=== PATIENT | male | born 1950 | race Two or more races ===

== ENCOUNTER 2023-10-07 23:21 | Inpatient (IN) | payer OTHER ==
[~2023-10-07] VITALS: Ht 167.6 cm; Wt 79.4 kg
[2023-10-07] MEDS ORDERED: 0.9 % SODIUM CHLORIDE 1,000 ML IV SCH (23:45)
--- NOTE | 2023-10-07 23:48 | NUR ---
SE RECIBE PTE EN AMBULANCIA EN COMPANIA DE CUIDADORA QUIEN REFIERE PTE LYONS ESTADO CON CATARRO Y SECRECIONES DESDE HACE UNOS LOVE APROX. PTE PADECE DE AUTISMO LAUREN Y NO VERBALIZA. SE MIDEN SV Y SATURACION DE PTE RESULTA SER 90%, SE COLOCA EN RY CON [place] NON-REBREATHING DE AMBULANCIA Y SE CONECTA A MONITOR CARDIACO.
[2023-10-08 00:05] LABS: HEMATOCRIT 31.9 % (39.0-48.0); HEMOGLOBIN 10.5 g/dL (13-16.00); MEAN CELL VOLUME 86.6 fL (80.0-100.00); MEAN CORPUSCULAR HEMOGLOBIN 28.3 pg (27.00-32.0); MEAN CORPUSCULAR HGB CONC 32.7 g/dl (32.0-36.0); PLATELET COUNT 299 K/uL (150-450); RED BLOOD COUNT 3.69 M/uL (4.00-6.00); RED CELL DISTRIBUTION WIDTH 14.3 % (11.5-14.5)
[2023-10-08 00:07] LABS: ABG PH 7.435 (7.35-7.45); ABG PO2 87.9 mmHg (80-100); ABG pCO2 31.1 mmHg (35-45); BASE EXCESS -2.6 mmol/l; BICARBONATE 20.4 mmol/l (23-25); Tco2 21.4 mmol/l; allen test SATISFACTORY; o2 100 %; puncture site RADIAL LEFT
--- NOTE | 2023-10-08 00:08 | NUR ---
SE ORIENTA CUIDADORA DE PTE SOBRE TX, REFIERE ENTENDER Y ACEPTAR. RN ORELLANA CANALIZA PTE EN BRAZO DERECHO CON ANGIO #18 Y LE COLOCA IV FLUIDS SHERRELL ORDEN MEDICA. LE CARLITO MUESTRAS DE LABORATORIO BAJO MEDIDAS ASEPTICAS. MR SHELLEY DE TERAPIA RESPIRATORIA LE CARLITO MUESTRA DE ABG'S. PENDIENE RESULTADOS DE LABORATORIO.
[2023-10-08] MEDS ORDERED: CLONAZEPAM1 M1 PO (00:17)
[2023-10-08] MEDS ORDERED: MONODOX50 MG PO (00:17)
[2023-10-08] MEDS ORDERED: KEPPRA500 MG PO (00:18)
[2023-10-08] MEDS ORDERED: DOXEPIN HCL150 MG PO (00:18)
[2023-10-08] MEDS ORDERED: ATORVASTATIN CA10 MG PO (00:19)
[2023-10-08] MEDS ORDERED: SEROQUEL XR50 MG PO (00:19)
[2023-10-08] MEDS ORDERED: PROSCAR5 MG PO (00:20)
[2023-10-08] MEDS ORDERED: LEVOTHYROXINE25 MCG PO (00:20)
[2023-10-08] MEDS ORDERED: TAMS0.4C PO (00:20)
[2023-10-08] MEDS ORDERED: SERTRALINE20 MG/1 ML PO (00:21)
[2023-10-08] MEDS ORDERED: RESTORIL30 M1 PO (00:21)
[2023-10-08 00:26] LABS: CALCIUM 8.6 mg/dL (8.5-10.1); CREATININE SERUM 0.72 mg/dL (0.70-1.30); GFR 107.31; POTASSIUM 3.55 mEq/L (3.5-5.1)
[2023-10-08] MEDS ORDERED: LEVALBUTEROL HCL 0.63 MG/3 ML SOLUTION IH SCH ×2 (00:30→01:31)
--- NOTE | 2023-10-08 01:45 | NUR ---
SE NOTIFICAN CAMBIOS EN TX A PERSONAL DE TERAPIA RESPIRATORIA.
[2023-10-08] MEDS ORDERED: CEFTRIAXONE SODIUM 1,000 MG VIAL IV STA (03:05)
--- NOTE | 2023-10-08 03:28 | NUR ---
SE INSERTA [place] BAJO MEDIDAS ASEPTICAS Y SE ADMINISTRAN MEDICAMENTOS.
[2023-10-08 03:46] LABS: PH,URINE 6.5 (5.0-8.0); URINE APPEARANCE Clear; URINE BILIRRUBIN Negative (NEGATIVE); URINE BLOOD Negative; URINE COLOR Yellow; URINE GLUCOSE Negative (NEGATIVE); URINE LEUKOCYTE Negative; URINE NITRATE Negative; URINE PROTEIN Trace (NEGATIVE)
[2023-10-08 03:49] LABS: URINE EPITHELIAL CELLS 3.8 uL (0.0-38.8); URINE RBC 34.9 uL (0.0-20.8); URINE WBC 5.8 uL (0.0-23.2)
--- NOTE | 2023-10-08 07:39 | NUR ---
SE RECIBE PTE ALERTA Y ORIENTADA X3 LA MISMA SE OBSERVA CON CANALIZACION #20 Y #18 POR DONDE BAJA .9 NSS 80ML/HR. VENTURY MASK A 50%,. TERAPIA Q4H. [place] EN POSICION DRENANDO LIDUIDO AMARILLO. PTE EN ESPERA DE CONSULTA POR DR WEBSTER POR PULMONIA.
[2023-10-08] MEDS ORDERED: GUAIFENESIN 200 MG/10 ML BLIST.PACK PO SCH (08:44)
[2023-10-08] MEDS ORDERED: HALOPERIDOL LACTATE 5 MG/ML AMPUL IM PRN (08:45)
[2023-10-08] MEDS ORDERED: IPRATROPIUM BROMIDE 0.5 MG/2.5 ML AMPUL.NEB IH SCH (09:00)
[2023-10-08] MEDS ORDERED: PIPERACILLIN/TAZOBACTAM SODIUM 3.375 GM VIAL IV SCH (12:00)
[2023-10-09 07:27] LABS: HEMOGLOBIN 11.1 g/dL (13-16.00); MEAN CELL VOLUME 87.7 fL (80.0-100.00); MEAN CORPUSCULAR HEMOGLOBIN 28.8 pg (27.00-32.0); MEAN CORPUSCULAR HGB CONC 32.8 g/dl (32.0-36.0); PLATELET COUNT 267 K/uL (150-450); RED BLOOD COUNT 3.87 M/uL (4.00-6.00); RED CELL DISTRIBUTION WIDTH 14.7 % (11.5-14.5)
[2023-10-09 08:17] LABS: ALBUMIN 2.2 gm/dL (3.4-5.0); ALKALINE PHOSPHATASE 105 U/L (50-136); ALT/SGPT 37 U/L (12-78); ANION GAP 10 (10.0-20.0); AST/SGOT 63 U/L (15-37); BLOOD UREA NITROGEN 15 mg/dL (7-18); BUN CREA RATIO 22 (7.0-25.0); CALCIUM 8.7 mg/dL (8.5-10.1); CARBON DIOXIDE 25 mEq/L (21-32); CHLORIDE 109 mmol/L (98-107); CREATININE SERUM 0.68 mg/dL (0.70-1.30); GFR 114.63; GLOBULINA 5.7 G/DL (2.4-3.5); GLUCOSE FASTING 86 mg/dL (65-100); OSMOLALITY SERUM 280 MOSM/KG (275-295); PHOSPHOKINASE CREATININE 176 U/L (39-308); POTASSIUM 4.31 mEq/L (3.5-5.1); SODIUM 140 mmol/L (136-145); TOTAL PROTEIN 7.9 gm/dL (6.4-8.2)
[2023-10-09 08:18] LABS: CKMB < 1.0 NG/ML (0.5-3.6)
[2023-10-09] MEDS ORDERED: LevETIRAcetam 500 MG TAB. PO SCH (09:00)
[2023-10-09] MEDS ORDERED: SERTRALINE HCL 50 MG TABLET PO SCH (09:00)
[2023-10-09] MEDS ORDERED: QUETIAPINE FUMARATE 25 MG TABLET PO SCH (09:00)
[2023-10-09] MEDS ORDERED: IPRATROPIUM BROMIDE 0.5 MG/2.5 ML AMPUL.NEB IH SCH (12:00)
[2023-10-09] MEDS ORDERED: LEVALBUTEROL HCL 0.63 MG/3 ML SOLUTION IH SCH (12:00)
[2023-10-09] MEDS ORDERED: DOXEPIN 75 MG PO SCH ×2 (17:00)
[2023-10-09] MEDS ORDERED: CLONAZEPAM 1 MG TABLET PO SCH (17:00)
[2023-10-09] MEDS ORDERED: TEMAZEPAM 15 MG CAPSULE PO SCH (17:00)
[2023-10-09] MEDS ORDERED: QUETIAPINE FUMARATE 100 MG TABLET PO SCH (17:00)
[2023-10-10] MEDS ORDERED: MEROPENEM 500 MG/VIAL VIAL IV SCH (18:00)
[2023-10-10] MEDS ORDERED: VANCOMYCIN HCL 1,000 MG VIAL IV SCH (21:00)
[2023-10-11 09:34] LABS: HEMATOCRIT 36.2 % (39.0-48.0); HEMOGLOBIN 11.9 g/dL (13-16.00); MEAN CELL VOLUME 86.8 fL (80.0-100.00); MEAN CORPUSCULAR HEMOGLOBIN 28.5 pg (27.00-32.0); MEAN CORPUSCULAR HGB CONC 32.8 g/dl (32.0-36.0); RED BLOOD COUNT 4.17 M/uL (4.00-6.00); RED CELL DISTRIBUTION WIDTH 14.5 % (11.5-14.5)
[2023-10-11 09:35] LABS: PLATELET COUNT 129 K/uL (150-450)
[2023-10-11 10:24] LABS: ALBUMIN 1.9 gm/dL (3.4-5.0); BILIRUBIN TOTAL 0.26 mg/dL (0.3-1.2); CALCIUM 8.2 mg/dL (8.5-10.1); CREATININE SERUM 0.61 mg/dL (0.70-1.30); GFR 129.93; GLOBULINA 5.3 G/DL (2.4-3.5); MAGNESIUM 1.9 mg/dL (1.8-2.4); PHOSPHOROUS 2.2 mg/dL (2.5-4.9); TOTAL PROTEIN 7.2 gm/dL (6.4-8.2)
[2023-10-11 10:31] LABS: C-REACTIVE PROTEIN 6.53 MG/DL (0.00-0.29); POTASSIUM 2.98 mEq/L (3.5-5.1)
[2023-10-11] MEDS ORDERED: POTASSIUM CHLORIDE 20MEQ/100ML H2O PB IV NR (11:45)
[2023-10-11 14:16] LABS: ABG PH 7.361 (7.35-7.45)
[2023-10-11 14:17] LABS: ABG PO2 82.7 mmHg (80-100); BASE EXCESS -4.8 mmol/l; BICARBONATE 19.9 mmol/l (23-25); SaO2 95.4 %; allen test SATISFACTORY; o2 21 %; puncture site RADIAL LEFT
[2023-10-12 13:08] LABS: CALCIUM 8.5 mg/dL (8.5-10.1); CREATININE SERUM 0.57 mg/dL (0.70-1.30); GFR 140.51; POTASSIUM 3.01 mEq/L (3.5-5.1)
[2023-10-13] MEDS ORDERED: POTASSIUM CHLORIDE 20MEQ/100ML H2O PB IV NR (07:30)
[2023-10-13] MEDS ORDERED: LOSARTAN POTASSIUM 50 MG TABLET PO SCH (09:00)
[2023-10-13] MEDS ORDERED: AMPICILLIN SODIUM/SULBACTAM NA 3,000 MG VIAL IV SCH (20:00)
[2023-10-13] MEDS ORDERED: VANCOMYCIN HCL 1,000 MG VIAL IV SCH (21:00)
[2023-10-13] MEDS ORDERED: CIPROFLOXACIN IN 5 % DEXTROSE 400 MG/200 ML PIGGYBAG IV SCH (21:00)
[2023-10-13] MEDS ORDERED: METRONIDAZOLE/SODIUM CHLORIDE 100 ML IV SCH (21:00)
[2023-10-14] MEDS ORDERED: MEROPENEM 500 MG/VIAL VIAL IV SCH
[2023-10-14 15:28] LABS: HEMATOCRIT 33.1 % (39.0-48.0); HEMOGLOBIN 11.2 g/dL (13-16.00); MEAN CELL VOLUME 82.6 fL (80.0-100.00); MEAN CORPUSCULAR HGB CONC 33.9 g/dl (32.0-36.0); PLATELET COUNT 219 K/uL (150-450); RED CELL DISTRIBUTION WIDTH 15.1 % (11.5-14.5)
[2023-10-14 15:39] LABS: ALBUMIN 1.6 gm/dL (3.4-5.0); BILIRUBIN TOTAL 0.45 mg/dL (0.3-1.2); CALCIUM 8.2 mg/dL (8.5-10.1); CREATININE SERUM 0.41 mg/dL (0.70-1.30); GFR 205.51; GLOBULINA 5.3 G/DL (2.4-3.5); TOTAL PROTEIN 6.9 gm/dL (6.4-8.2)
[2023-10-14 16:53] LABS: POTASSIUM 2.78 mEq/L (3.5-5.1)
[2023-10-14] MEDS ORDERED: POTASSIUM CHLORIDE IN WATER 40 MEQ/100 ML PIGGYBAG IV ONE (17:00)
[2023-10-15] MEDS ORDERED: LOSARTAN POTASSIUM 50 MG TABLET PO SCH (09:00)
[2023-10-15] MEDS ORDERED: LOSARTAN POTASSIUM 100 MG TABLET PO SCH (09:00)
[2023-10-16 11:11] LABS: ABG PO2 79.3 mmHg (80-100); ABG pCO2 36.1 mmHg (35-45); BASE EXCESS -1.1 mmol/l; BICARBONATE 22.9 mmol/l (23-25); SaO2 95.8 %
[2023-10-16 11:12] LABS: allen test SATISFACTORY; o2 21 %; puncture site RADIAL LEFT
[2023-10-16 16:37] LABS: HEMATOCRIT 31.3 % (39.0-48.0); HEMOGLOBIN 10.6 g/dL (13-16.00); MEAN CELL VOLUME 83.5 fL (80.0-100.00); MEAN CORPUSCULAR HEMOGLOBIN 28.1 pg (27.00-32.0); MEAN CORPUSCULAR HGB CONC 33.7 g/dl (32.0-36.0); PLATELET COUNT 332 K/uL (150-450); RED BLOOD COUNT 3.75 M/uL (4.00-6.00); RED CELL DISTRIBUTION WIDTH 15.4 % (11.5-14.5)
[2023-10-16 17:10] LABS: ALBUMIN 1.8 gm/dL (3.4-5.0); BILIRUBIN TOTAL 0.59 mg/dL (0.3-1.2); CALCIUM 8.6 mg/dL (8.5-10.1); CREATININE SERUM 0.43 mg/dL (0.70-1.30); GFR 194.53; GLOBULINA 5.5 G/DL (2.4-3.5); TOTAL PROTEIN 7.3 gm/dL (6.4-8.2)
[2023-10-16 17:24] LABS: POTASSIUM 2.52 mEq/L (3.5-5.1)
[2023-10-16] MEDS ORDERED: POTASSIUM CHLORIDE IN WATER 40 MEQ/100 ML PIGGYBAG IV NR (18:30)
[2023-10-16] MEDS ORDERED: POTASSIUM CHLORIDE IN WATER 40 MEQ/100 ML PIGGYBAG IV ONE (19:08)
[2023-10-17] MEDS ORDERED: AMINO ACIDS/PROTEIN HYDROLYS 30 ML BLIST.PACK NGT SCH (19:27)
[2023-10-17] MEDS ORDERED: POTASSIUM CHLORIDE/D5-0.45NACL 1,000 ML IV NR (19:30)
[2023-10-18 03:15] LABS: CALCIUM 8.3 mg/dL (8.5-10.1); GFR 179.96; POTASSIUM 3.08 mEq/L (3.5-5.1)
[2023-10-18 03:18] LABS: CREATININE SERUM 0.46 mg/dL (0.70-1.30)
[2023-10-18 05:24] LABS: HEMATOCRIT 32.2 % (39.0-48.0); MEAN CORPUSCULAR HGB CONC 33.9 g/dl (32.0-36.0); PLATELET COUNT 366 K/uL (150-450); RED BLOOD COUNT 3.83 M/uL (4.00-6.00); RED CELL DISTRIBUTION WIDTH 15.7 % (11.5-14.5)
[2023-10-18 05:31] LABS: HEMOGLOBIN 10.9 g/dL (13-16.00); MEAN CORPUSCULAR HEMOGLOBIN 28.4 pg (27.00-32.0)
[2023-10-18 05:41] LABS: ERYTHROCYTE SEDIMENTATION RATE > 130 mm/hr
[2023-10-18 05:44] LABS: ALBUMIN 1.8 gm/dL (3.4-5.0); BILIRUBIN TOTAL 0.54 mg/dL (0.3-1.2); CALCIUM 8.4 mg/dL (8.5-10.1); CREATININE SERUM 0.53 mg/dL (0.70-1.30); GFR 152.82; GLOBULINA 5.9 G/DL (2.4-3.5); MAGNESIUM 2.3 mg/dL (1.8-2.4); PHOSPHOROUS 2.6 mg/dL (2.5-4.9); POTASSIUM 3.35 mEq/L (3.5-5.1); TOTAL PROTEIN 7.7 gm/dL (6.4-8.2)
[2023-10-18 05:52] LABS: C-REACTIVE PROTEIN 7.07 MG/DL (0.00-0.29)
[2023-10-18] MEDS ORDERED: AMLODIPINE BESYLATE 5 MG TABLET PO SCH (09:00)
[2023-10-19] MEDS ORDERED: POTASSIUM CHLORIDE 20MEQ/100ML H2O PB IV NR (08:45)
[2023-10-19] MEDS ORDERED: VANCOMYCIN HCL 5 MG/ML REDILUIDO IV SCH (21:00)
[2023-10-20 08:36] LABS: CALCIUM 8.5 mg/dL (8.5-10.1); CREATININE SERUM 0.45 mg/dL (0.70-1.30); GFR 184.58; POTASSIUM 3.33 mEq/L (3.5-5.1)
[2023-10-20] MEDS ORDERED: POTASSIUM CHLORIDE IN WATER 100 ML IV SCH (13:00)
[2023-10-21] MEDS ORDERED: POTASSIUM CHLORIDE 20MEQ/100ML H2O PB IV NR (10:45)
[2023-10-21] MEDS ORDERED: TEMAZEPAM 15 MG CAPSULE PO SCH (21:00)
[2023-10-21] MEDS ORDERED: CLONAZEPAM 1 MG TABLET PO SCH (21:00)
[2023-10-22 06:50] LABS: CALCIUM 8.8 mg/dL (8.5-10.1); CREATININE SERUM 0.49 mg/dL (0.70-1.30); GFR 167.31; POTASSIUM 3.1 mEq/L (3.5-5.1)
[2023-10-22] MEDS ORDERED: DEXTROSE 5 % IN WATER 1,000 ML IV SCH (09:15)
[2023-10-22] MEDS ORDERED: MEROPENEM 500 MG/VIAL VIAL IV SCH (18:00)
[2023-10-23] MEDS ORDERED: LACTULOSE 20 G/30 ML BLIST.PACK PO STA ×2 (09:28→11:58)
[2023-10-23] MEDS ORDERED: MINERAL OIL 30 ML BLIST.PACK PO STA (11:58)
[2023-10-23] MEDS ORDERED: MAGNESIUM HYDROXIDE 30 ML BLIST.PACK PO STA (11:59)
== END 2023-10-23 18:15 | disposition home or self-care (01) | DRG 166 ==
LOC: ER 23:21 → MEDJ 10-08 10:17 → SEC-K 10-08 10:17 → MEDJ 10-08 10:40
PROVIDERS: Emergency Medicine; General Practice; Internal Medicine; Internal Medicine Critical Care Medicine; Internal Medicine Infectious Disease; ADMIT Internal Medicine; ATTEND Internal Medicine
PROC: BW24ZZZ Computerized Tomography (CT Scan) of Chest and Abdomen (ICD-10-PCS; 2023-10-08)
PROC: BW28ZZZ Computerized Tomography (CT Scan) of Head (ICD-10-PCS; 2023-10-08)
PROC: 0JB70ZZ Excision of Back Subcutaneous Tissue and Fascia, Open Approach (ICD-10-PCS; principal; 2023-10-10)
PROC: 0JB70ZZ Excision of Back Subcutaneous Tissue and Fascia, Open Approach (ICD-10-PCS; 2023-10-11)
PROC: C710YZZ Planar Nuclear Medicine Imaging of Bone Marrow using Other Radionuclide (ICD-10-PCS; 2023-10-11)
PROC: 0JD70ZZ Extraction of Back Subcutaneous Tissue and Fascia, Open Approach (ICD-10-PCS; 2023-10-18)
PROC: 2W15X6Z Compression of Back using Pressure Dressing (ICD-10-PCS; 2023-10-18)
DX: J69.0 Pneumonitis due to inhalation of food and vomit (principal); L89.154 Pressure ulcer of sacral region, stage 4; F84.0 Autistic disorder; E87.0 Hyperosmolality and hypernatremia; L89.159 Pressure ulcer of sacral region, unspecified stage; E87.6 Hypokalemia; L08.9 Local infection of the skin and subcutaneous tissue, unspecified; B95.2 Enterococcus as the cause of diseases classified elsewhere; B96.4 Proteus (mirabilis) (morganii) as the cause of diseases classified elsewhere; B96.6 Bacteroides fragilis [B. fragilis] as the cause of diseases classified elsewhere; R13.10 Dysphagia, unspecified

== ENCOUNTER 2023-10-24 21:49 | Inpatient (IN) | payer OTHER ==
[~2023-10-24] VITALS: Ht 165.1 cm; Wt 81.6 kg
[~2023-10-24 21:49] MED LIST: ATORVASTATIN CA10 MG PO; CLONAZEPAM1 M1 PO; DOXEPIN HCL150 MG PO; KEPPRA500 MG PO; LEVOTHYROXINE25 MCG PO; MONODOX50 MG PO; PROSCAR5 MG PO; RESTORIL30 M1 PO; SEROQUEL XR50 MG PO; SERTRALINE20 MG/1 ML PO; TAMS0.4C PO
[2023-10-24] MEDS ORDERED: NALOXONE HCL 0.4 MG/ML AMPUL ONE (21:56)
[2023-10-24] MEDS ORDERED: FLUMAZENIL 0.5 MG/5 ML ML IV ONE ×2 (21:56→22:42)
[2023-10-24] MEDS ORDERED: 0.9 % SODIUM CHLORIDE 500 ML IV STA (22:12)
[2023-10-24] MEDS ORDERED: NALOXONE HCL 0.4 MG/ML AMPUL IV STA (22:13)
[2023-10-24] MEDS ORDERED: FLUMAZENIL 0.5 MG/5 ML ML IV STA ×2 (22:13→22:34)
[2023-10-24 23:30] LABS: INR 1.2; PROTHROMBIN TIME 12.4 SECONDS (9.0-11.5)
[2023-10-24 23:32] LABS: CALCIUM 8.5 mg/dL (8.5-10.1); CREATININE SERUM 1.48 mg/dL (0.70-1.30); GFR 46.72
[2023-10-24 23:35] LABS: HEMATOCRIT 24.3 % (39.0-48.0); MEAN CELL VOLUME 84.4 fL (80.0-100.00); MEAN CORPUSCULAR HEMOGLOBIN 27.4 pg (27.00-32.0); MEAN CORPUSCULAR HGB CONC 32.5 g/dl (32.0-36.0); PLATELET COUNT 311 K/uL (150-450); RED BLOOD COUNT 2.88 M/uL (4.00-6.00); RED CELL DISTRIBUTION WIDTH 15.9 % (11.5-14.5)
[2023-10-24 23:38] LABS: HEMOGLOBIN 7.9 g/dL (13-16.00)
[2023-10-24 23:41] LABS: POTASSIUM 2.59 mEq/L (3.5-5.1)
[2023-10-24] MEDS ORDERED: POTASSIUM CHLORIDE/D5-0.9%NACL 40 MEQ/1,000 ML PIGGYBAG IV STA (23:42)
[2023-10-25 01:11] LABS: ABG PH 7.358 (7.35-7.45); ABG PO2 94.9 mmHg (80-100); BASE EXCESS -2.8 mmol/l; BICARBONATE 22.5 mmol/l (23-25); SaO2 96.9 %; Tco2 23.8 mmol/l; allen test SATISFACTORY; o2 32 %; puncture site RADIAL LEFT
[2023-10-25 03:37] LABS: PH,URINE 6.5 (5.0-8.0); URINE APPEARANCE Cloudy; URINE BILIRRUBIN Negative (NEGATIVE); URINE BLOOD Small; URINE COLOR Yellow; URINE GLUCOSE Negative (NEGATIVE); URINE KETONE Negative (NEGATIVE); URINE LEUKOCYTE Small; URINE NITRATE Negative; URINE PROTEIN 30 (NEGATIVE); URINE UROBILINOGEN 0.2 E.U./dl
[2023-10-25 03:42] LABS: URINE BACTERIA 79.3 uL (0.0-1933); URINE CAST 1.83 uL (0.0-1.40); URINE EPITHELIAL CELLS 51.7 uL (0.0-38.8); URINE RBC 34.3 uL (0.0-20.8); URINE WBC 61.2 uL (0.0-23.2)
[2023-10-25 04:14] LABS: URINE CRYSTALS FEW /HPF
[2023-10-25] MEDS ORDERED: CEFTRIAXONE SODIUM 1,000 MG VIAL IV STA (04:42)
[2023-10-25] MEDS ORDERED: CEFTRIAXONE SODIUM 1,000 MG VIAL ONE (04:48)
[2023-10-25] MEDS ORDERED: IPRATROPIUM/ALBUTEROL SULFATE 3 ML AMPUL.NEB IH ONE (08:15)
[2023-10-25] MEDS ORDERED: ENOXAPARIN SODIUM 40 MG/0.4 ML SYRINGE SUBCUTANEO SCH (09:00)
[2023-10-25] MEDS ORDERED: IPRATROPIUM/ALBUTEROL SULFATE 3 ML AMPUL.NEB IH SCH (09:00)
[2023-10-25] MEDS ORDERED: POTASSIUM CHLORIDE IN WATER 40 MEQ/100 ML PIGGYBAG IV SCH (09:00)
[2023-10-25] MEDS ORDERED: ENOXAPARIN SODIUM 40 MG/0.4 ML SYRINGE SUBCUTANEO ONE (09:14)
[2023-10-25] MEDS ORDERED: PIPERACILLIN/TAZOBACTAM SODIUM 3.375 GM VIAL IV SCH (12:00)
[2023-10-25] MEDS ORDERED: HALOPERIDOL 5 MG TABLET PO SCH (14:00)
[2023-10-25] MEDS ORDERED: MEROPENEM 500 MG/VIAL VIAL IV SCH (17:00)
[2023-10-25] MEDS ORDERED: VANCOMYCIN HCL 1,000 MG VIAL IV SCH (17:00)
[2023-10-26] MEDS ORDERED: HALOPERIDOL LACTATE 5 MG/ML AMPUL IM PRN (10:30)
[2023-10-26] MEDS ORDERED: hydrALAZINE HCL 20 MG VIAL IV PRN (10:45)
[2023-10-26] MEDS ORDERED: SERTRALINE HCL100 MG (10:46)
[2023-10-26] MEDS ORDERED: CLOTRIMAZOLE-BE15 G1 (10:46)
[2023-10-26] MEDS ORDERED: hydrALAZINE HCL 20 MG VIAL IV STA (10:46)
[2023-10-26 12:06] LABS: HEMATOCRIT 34.9 % (39.0-48.0); HEMOGLOBIN 11.6 g/dL (13-16.00); MEAN CELL VOLUME 84.7 fL (80.0-100.00); MEAN CORPUSCULAR HEMOGLOBIN 28.2 pg (27.00-32.0); MEAN CORPUSCULAR HGB CONC 33.3 g/dl (32.0-36.0); PLATELET COUNT 335 K/uL (150-450); RED BLOOD COUNT 4.12 M/uL (4.00-6.00); RED CELL DISTRIBUTION WIDTH 15.6 % (11.5-14.5)
[2023-10-26 12:33] LABS: ALBUMIN 1.9 gm/dL (3.4-5.0); ALKALINE PHOSPHATASE 105 U/L (50-136); ALT/SGPT 17 U/L (12-78); AST/SGOT 25 U/L (15-37); BILIRUBIN TOTAL 0.88 mg/dL (0.3-1.2); BLOOD UREA NITROGEN 19 mg/dL (7-18); BUN CREA RATIO 18 (7.0-25.0); CALCIUM 8.5 mg/dL (8.5-10.1); CARBON DIOXIDE 21 mEq/L (21-32); CREATININE SERUM 1.05 mg/dL (0.70-1.30); GFR 69.43; GLOBULINA 5.8 G/DL (2.4-3.5); GLUCOSE FASTING 92 mg/dL (65-100); POTASSIUM 3.32 mEq/L (3.5-5.1); TOTAL PROTEIN 7.7 gm/dL (6.4-8.2)
[2023-10-26 12:48] LABS: CKMB < 1.0 NG/ML (0.5-3.6); OSMOLALITY SERUM 311 MOSM/KG (275-295)
[2023-10-26 12:49] LABS: ANION GAP 12 (10.0-20.0)
[2023-10-26 12:50] LABS: SODIUM 156 mmol/L (136-145)
[2023-10-26 12:51] LABS: CHLORIDE 126 mmol/L (98-107)
[2023-10-26] MEDS ORDERED: POTASSIUM CHLORIDE IN WATER 40 MEQ/100 ML PIGGYBAG IV ONE (13:56)
[2023-10-26] MEDS ORDERED: POTASSIUM CHLORIDE IN WATER 100 ML IV NR (14:00)
[2023-10-26] MEDS ORDERED: LevETIRAcetam 500 MG/5 ML VIAL IV SCH (14:01)
[2023-10-27 07:44] LABS: CALCIUM 9.1 mg/dL (8.5-10.1); CREATININE SERUM 0.93 mg/dL (0.70-1.30); GFR 79.87; POTASSIUM 4.16 mEq/L (3.5-5.1)
[2023-10-27] MEDS ORDERED: DEXTROSE 5 %-0.45 % SOD CHLORD 1,000 ML IV SCH (12:00)
[2023-10-28 07:41] LABS: CREATININE SERUM 0.9 mg/dL (0.70-1.30); GFR 82.95; POTASSIUM 3.42 mEq/L (3.5-5.1)
[2023-10-28] MEDS ORDERED: DEXTROSE 5 % IN WATER 1,000 ML IV SCH (16:30)
[2023-10-28] MEDS ORDERED: MEROPENEM 500 MG/VIAL VIAL IV SCH (18:00)
[2023-10-29] MEDS ORDERED: VANCOMYCIN HCL 1,000 MG VIAL IV SCH (05:00)
[2023-10-29] MEDS ORDERED: DEXTROSE 5 % IN WATER 1,000 ML IV SCH (09:45)
[2023-10-29] MEDS ORDERED: FLUCONAZOLE IN NACL,ISO-OSM 400 MG/200 ML PIGGYBAG IV NR (14:30)
[2023-10-30 06:17] LABS: HEMATOCRIT 33.5 % (39.0-48.0); HEMOGLOBIN 11.2 g/dL (13-16.00); MEAN CELL VOLUME 85.4 fL (80.0-100.00); MEAN CORPUSCULAR HEMOGLOBIN 28.5 pg (27.00-32.0); MEAN CORPUSCULAR HGB CONC 33.3 g/dl (32.0-36.0); PLATELET COUNT 257 K/uL (150-450); RED BLOOD COUNT 3.93 M/uL (4.00-6.00)
[2023-10-30 06:44] LABS: ALBUMIN 1.8 gm/dL (3.4-5.0); BILIRUBIN TOTAL 0.75 mg/dL (0.3-1.2); CALCIUM 8.3 mg/dL (8.5-10.1); CREATININE SERUM 0.73 mg/dL (0.70-1.30); GFR 105.61; GLOBULINA 5.5 G/DL (2.4-3.5); MAGNESIUM 2.1 mg/dL (1.8-2.4); PHOSPHOROUS 2.8 mg/dL (2.5-4.9); TOTAL PROTEIN 7.3 gm/dL (6.4-8.2)
[2023-10-30 08:13] LABS: C-REACTIVE PROTEIN 4.19 MG/DL (0.00-0.29)
[2023-10-30 08:16] LABS: POTASSIUM 2.96 mEq/L (3.5-5.1)
[2023-10-30] MEDS ORDERED: POTASSIUM CHLORIDE IN WATER 100 ML IV NR (11:30)
[2023-10-30] MEDS ORDERED: FLUCONAZOLE IN NACL,ISO-OSM 100 ML IV SCH (12:00)
[2023-10-31] MEDS ORDERED: POTASSIUM CHLORIDE IN WATER 40 MEQ/100 ML PIGGYBAG IV ONE (07:00)
[2023-10-31 08:40] LABS: CALCIUM 8.2 mg/dL (8.5-10.1); CREATININE SERUM 0.66 mg/dL (0.70-1.30); GFR 118.64
[2023-10-31 09:23] LABS: POTASSIUM 2.8 mEq/L (3.5-5.1)
[2023-10-31] MEDS ORDERED: POTASSIUM CHLORIDE IN WATER 40 MEQ/100 ML PIGGYBAG IV STA (09:35)
[2023-10-31] MEDS ORDERED: POTASSIUM CHLORIDE IN WATER 40 MEQ/100 ML PIGGYBAG IV NR (09:45)
[2023-11-01 08:38] LABS: HEMATOCRIT 32.6 % (39.0-48.0); MEAN CELL VOLUME 83.2 fL (80.0-100.00); MEAN CORPUSCULAR HGB CONC 33.6 g/dl (32.0-36.0); PLATELET COUNT 252 K/uL (150-450); RED BLOOD COUNT 3.92 M/uL (4.00-6.00); RED CELL DISTRIBUTION WIDTH 16.4 % (11.5-14.5)
[2023-11-01] MEDS ORDERED: LOSARTAN POTASSIUM 100 MG TABLET PO SCH (09:00)
[2023-11-01 09:18] LABS: ERYTHROCYTE SEDIMENTATION RATE > 130 mm/hr
[2023-11-01 09:46] LABS: ALBUMIN 1.8 gm/dL (3.4-5.0); BILIRUBIN TOTAL 0.89 mg/dL (0.3-1.2); CALCIUM 8.2 mg/dL (8.5-10.1); CREATININE SERUM 0.64 mg/dL (0.70-1.30); GFR 122.93; GLOBULINA 5.4 G/DL (2.4-3.5); PHOSPHOROUS 2.7 mg/dL (2.5-4.9); POTASSIUM 3.23 mEq/L (3.5-5.1); TOTAL PROTEIN 7.2 gm/dL (6.4-8.2)
[2023-11-01 09:50] LABS: C-REACTIVE PROTEIN 5.74 MG/DL (0.00-0.29)
[2023-11-02] MEDS ORDERED: AMLODIPINE BESYLATE 5 MG TABLET PO SCH (09:00)
[2023-11-02] MEDS ORDERED: hydrALAZINE HCL 50 MG TABLET PO SCH (09:00)
[2023-11-02] MEDS ORDERED: MINERAL OIL 30 ML BLIST.PACK PO SCH (12:00)
[2023-11-02] MEDS ORDERED: LACTULOSE 20 G/30 ML BLIST.PACK PO SCH (12:00)
[2023-11-02] MEDS ORDERED: VANCOMYCIN HCL 5 MG/ML REDILUIDO IV SCH (17:00)
[2023-11-03] MEDS ORDERED: NA PHOS,M-B/NA PHOS,DI-BA 1 BOTTLE ENEMA RECTAL STA (09:43)
[2023-11-08 05:21] LABS: HEMATOCRIT 28.3 % (39.0-48.0); MEAN CORPUSCULAR HGB CONC 33.3 g/dl (32.0-36.0); PLATELET COUNT 358 K/uL (150-450); RED BLOOD COUNT 3.37 M/uL (4.00-6.00); RED CELL DISTRIBUTION WIDTH 16.5 % (11.5-14.5)
[2023-11-08 05:24] LABS: HEMOGLOBIN 9.4 g/dL (13-16.00); MEAN CORPUSCULAR HEMOGLOBIN 27.8 pg (27.00-32.0)
[2023-11-08 05:40] LABS: ALBUMIN 1.7 gm/dL (3.4-5.0); BILIRUBIN TOTAL 0.51 mg/dL (0.3-1.2); CALCIUM 8.2 mg/dL (8.5-10.1); CREATININE SERUM 0.49 mg/dL (0.70-1.30); GFR 167.31; GLOBULINA 4.6 G/DL (2.4-3.5); MAGNESIUM 2.2 mg/dL (1.8-2.4); TOTAL PROTEIN 6.3 gm/dL (6.4-8.2)
[2023-11-08 07:18] LABS: C-REACTIVE PROTEIN 6.71 MG/DL (0.00-0.29); POTASSIUM 2.98 mEq/L (3.5-5.1)
[2023-11-08] MEDS ORDERED: POTASSIUM BICARBONATE/CIT AC 25 MEQ TABLET.EFF PO NR (07:30)
[2023-11-08] MEDS ORDERED: POTASSIUM CHLORIDE 20MEQ/100ML H2O PB IV NR (07:30)
== END 2023-11-08 11:40 | disposition home or self-care (01) | DRG 580 ==
LOC: ER 21:49 → SEC-K 10-25 07:13 → MEDI 10-25 07:13
PROVIDERS: Internal Medicine; Internal Medicine Infectious Disease; ADMIT Internal Medicine; ATTEND Internal Medicine
PROC: BW28ZZZ Computerized Tomography (CT Scan) of Head (ICD-10-PCS; 2023-10-24)
PROC: 30233N1 Transfusion of Nonautologous Red Blood Cells into Peripheral Vein, Percutaneous Approach (ICD-10-PCS; 2023-10-25)
PROC: 02HV33Z Insertion of Infusion Device into Superior Vena Cava, Percutaneous Approach (ICD-10-PCS; 2023-10-26)
PROC: BW21YZZ Computerized Tomography (CT Scan) of Abdomen and Pelvis using Other Contrast (ICD-10-PCS; 2023-10-28)
PROC: 0JD70ZZ Extraction of Back Subcutaneous Tissue and Fascia, Open Approach (ICD-10-PCS; principal; 2023-10-31)
PROC: B54PZZZ Ultrasonography of Bilateral Upper Extremity Veins (ICD-10-PCS; 2023-11-01)
DX: L89.154 Pressure ulcer of sacral region, stage 4 (principal); E87.0 Hyperosmolality and hypernatremia; F84.0 Autistic disorder; I82.613 Acute embolism and thrombosis of superficial veins of upper extremity, bilateral; R09.02 Hypoxemia; D64.9 Anemia, unspecified; L08.9 Local infection of the skin and subcutaneous tissue, unspecified; B96.5 Pseudomonas (aeruginosa) (mallei) (pseudomallei) as the cause of diseases classified elsewhere; B96.83 Acinetobacter baumannii as the cause of diseases classified elsewhere; R13.19 Other dysphagia